=== PATIENT | female | born 1970 | race Caucasian/White ===

== ENCOUNTER 2019-02-15 07:05 | Day surgery (SDC) | payer BC ==
[~2019-02-15] VITALS: Ht 154.9 cm; Wt 58.1 kg
[~2019-02-15 07:05] MED LIST: EPINEPHRINE 1 MG/ML, 1ML ONE; LIDOCAINE 1%, 20ML ONE; ROPIvacaine/PF 0.5%, 30 ML ONE
[2019-02-15] MEDS ORDERED: MIDAZOLAM 1 MG/ML, 2ML ONE (07:29)
[2019-02-15] MEDS ORDERED: ROPIvacaine/PF 0.2%, 20 ML ONE (07:30)
[2019-02-15] MEDS ORDERED: ROCURONIUM 10MG/ML,5ML ONE (07:30)
[2019-02-15] MEDS ORDERED: NEOSTIGMINE 1 MG/ML, 10ML ONE (07:30)
[2019-02-15] MEDS ORDERED: CEFAZOLIN 1,000 MG ONE (07:30)
[2019-02-15] MEDS ORDERED: GLYCOPYRROLATE 0.2MG/1ML, 5ML ONE (07:30)
[2019-02-15] MEDS ORDERED: ONDANSETRON 2MG/ML, 2ML ONE (07:30)
[2019-02-15] MEDS ORDERED: FENTANYL PF 250 MCG/5ML ONE (07:30)
[2019-02-15] MEDS ORDERED: PROPOFOL 10 MG/ML, 20ML ONE (07:30)
[2019-02-15] MEDS ORDERED: DEXAMETHASONE 4 MG/ML, 1ML ONE (07:30)
[2019-02-15 07:32] VITALS: BP 148/92
[2019-02-15] MEDS ORDERED: LACTATED RINGERS 1,000 ML IV SCH ×2 (07:35→07:41)
[2019-02-15] MEDS ORDERED: SCOPOLAMINE PATCH, 1.5MG PATCH.TD72 TD ONE ×2 (08:00→08:22)
[2019-02-15] MEDS ORDERED: GABAPENTIN 300 MG CAPSULE PO ONE (08:00)
[2019-02-15] MEDS ORDERED: ACETAMINOPHEN 500 MG TABLET PO ONE (08:00)
[2019-02-15] MEDS ORDERED: PLEASE ENTER ALLERGIES MC SCH (08:00)
[2019-02-15] MEDS ORDERED: ZOLM5TAB8 PO (08:14)
[2019-02-15] MEDS ORDERED: GABAPENTIN 300 MG CAPSULE ONE (08:22)
[2019-02-15] MEDS ORDERED: ACETAMINOPHEN 500 MG TABLET ONE (08:22)
[2019-02-15 08:34] LABS: HCG UR SG 1.022 (1.003-1.030)
[2019-02-15] MEDS ORDERED: PROPOFOL 50 ML ONE ×2 (08:47→09:22)
[2019-02-15] MEDS ORDERED: KETOROLAC 30 MG/1 ML ONE (08:49)
[2019-02-15] MEDS ORDERED: hydrALAzine 20 MG/ML, 1ML IV PRN (09:00)
[2019-02-15] MEDS ORDERED: PROMETHAZINE 25 MG/ML, 1ML IM PRN ×2 (09:00)
[2019-02-15] MEDS ORDERED: PROMETHAZINE 25 MG/ML, 1ML IV PRN (09:00)
[2019-02-15] MEDS ORDERED: HALOPERIDOL 5 MG/ML IV PRN (09:00)
[2019-02-15] MEDS ORDERED: LABETALOL 5MG/ML, 20ML IV PRN (09:00)
[2019-02-15] MEDS ORDERED: ONDANSETRON 2MG/ML, 2ML IV PRN (09:00)
[2019-02-15] MEDS ORDERED: HYDROmorphone 2 MG/ML, 1ML IVPush PRN (09:00)
[2019-02-15] MEDS ORDERED: OXYcodone 5 MG/5 ML ORAL.SOL UDC PO PRN (09:00)
[2019-02-15] MEDS ORDERED: MEPERIDINE/PF 25MG/0.5ML IVPush PRN (09:00)
[2019-02-15] MEDS ORDERED: PROMETHAZINE 25 MG SUPP PR PRN (09:00)
[2019-02-15] MEDS ORDERED: FENTANYL PF 100 MCG/2ML IV PRN (09:00)
[2019-02-15] MEDS ORDERED: PROMETHAZINE 12.5 MG SUPP PR PRN (09:00)
[2019-02-15] MEDS ORDERED: ONDANSETRON ODT 8 MG PO PRN (09:00)
[2019-02-15] MEDS ORDERED: OXYcodone 5 MG/5 ML ORAL.SOL UDC ONE (10:20)
[2019-02-15] MEDS ORDERED: MORPHINE SULFATE 4 MG/ML, 1ML ONE (10:20)
[2019-02-15] MEDS: MORPHINE SULFATE 4 MG/ML, 1ML IVPush PRN ×2 (10:24→10:35)
[2019-02-15] MEDS ORDERED: MEPERIDINE/PF 25MG/ML,1ML ONE (11:02)
[2019-02-15] MEDS ORDERED: PROMETHAZINE 25 MG/ML, 1ML ONE (11:07)
== END 2019-02-15 15:10 | disposition home or self-care (01) ==
LOC: OUT 07:05
PROVIDERS: ATTEND Orthopaedic Surgery
DX: S83.511A Sprain of anterior cruciate ligament of right knee, initial encounter (principal); S83.281A Other tear of lateral meniscus, current injury, right knee, initial encounter; M94.261 Chondromalacia, right knee; X58.XXXA Exposure to other specified factors, initial encounter; Y93.89 Activity, other specified; Y92.89 Other specified places as the place of occurrence of the external cause; Y99.8 Other external cause status; Z72.89 Other problems related to lifestyle
CPT/HCPCS: 29881; 29888; 64447; 81025; C1713; C1762; J0171; J0690; J1100; J1885; J2175; J2250; J2405; J2550; J2704; J2710; J2795; J3010; J7120